=== PATIENT | female | born 1955 | race Caucasian/White ===

== ENCOUNTER 2017-04-26 09:01 | Day surgery (SDC) | payer MEDICARE ==
[~2017-04-26] VITALS: Ht 152.4 cm; Wt 54.2 kg
[2017-04-26] VITALS (8 sets, daily range): BP systolic 92–134; BP diastolic 60–93
[~2017-04-26 09:01] MED LIST: FERR324T4 PO; GABA300C PO; LACT10SO32 PO; LIDOcaine 1% 30ml vial IJ STA; OXYC15TA88 PO; RIFA200T2 PO
[2017-04-26] MEDS ORDERED: normal saline 1000ml 1,000 ML IV PRN (09:40)
[2017-04-26] MEDS ORDERED: albumin (human) 25% 100 ML IV solution IV PRN (09:40)
== END 2017-04-26 12:05 | disposition home or self-care (01) ==
LOC: SSTAY O 09:01
PROVIDERS: ATTEND Radiology Diagnostic Radiology
DX: R18.8 Other ascites (principal); G89.29 Other chronic pain; Z88.6 Allergy status to analgesic agent; Z88.8 Allergy status to other drugs, medicaments and biological substances; Z98.890 Other specified postprocedural states; Z87.891 Personal history of nicotine dependence; Z79.899 Other long term (current) drug therapy; D64.89 Other specified anemias; E78.4 Other hyperlipidemia; G47.30 Sleep apnea, unspecified
CPT/HCPCS: 49083; J3490; J7030; P9047

== ENCOUNTER 2017-05-23 16:28 | Inpatient (IN) | payer MEDICARE, OTHER ==
[~2017-05-23] VITALS: Ht 152.4 cm; Wt 51.4 kg
[~2017-05-23 16:28] MED LIST changes: -GABA300C PO; +GABA300S PO; -LACT10SO32 PO; +LACT10SO6 PO; -LIDOcaine 1% 30ml vial IJ STA; -RIFA200T2 PO; +RIFA550T PO
[2017-05-23] MEDS ORDERED: morphine 2 MG/ML inj. syringe IV ONE ×2 (16:40→18:25)
[2017-05-23] MEDS ORDERED: normal saline 1000ML IV soln IVB ONE (16:40)
[2017-05-23] MEDS ORDERED: ondansetron/PF 4mg/2ml inj IV ONE ×2 (16:40→17:50)
[2017-05-23] MEDS ORDERED: pantoprazole 40mg Tablet.DR PO ONE (16:40)
[2017-05-23 17:00] LABS: BASOPHILS % (AUTO) 0.3 % (0-1); EOSINOPHILS % (AUTO) 0.1 % (0-6); HEMOGLOBIN 7.1 g/dl (12.0-16.0); LYMPHOCYTES # (AUTO) 0.7 X10'3 (1.1-4.8); MEAN CORPUSCULAR HEMOGLOBIN 35.6 PG (27.0-31.0); MEAN CORPUSCULAR HGB CONC 35.2 % (33.0-36.5); MEAN CORPUSCULAR VOLUME 101.1 FL (78-98); MEAN PLATELET VOLUME 8.1 FL (7.4-10.4); MONOCYTES # (AUTO) 0.9 X10'3 (0-0.9); MONOCYTES % (AUTO) 10.6 % (2-12); NEUTROPHILS # (AUTO) 6.7 X10'3 (1.8-7.7); PLATELET COUNT 65 X10'3 (140-440); RED BLOOD COUNT 1.98 X10'6 (4.20-5.60); RED CELL DISTRIBUTION WIDTH 16.8 % (11.5-14.5); WHITE BLOOD COUNT 8.3 X10'3 (4.5-11.0)
[2017-05-23 17:10] LABS: INR 1.8 INR; PARTIAL THROMBOPLASTIN TIME 29 SECONDS (22-32); PROTHROMBIN TIME 17.9 SECONDS (9.0-12.0)
[2017-05-23 17:21] LABS: ALANINE AMINOTRANSFERASE 28 U/L (12-78); ALBUMIN 2.3 G/DL (3.4-5.0); ALBUMIN/GLOBULIN RATIO 0.6 (1.1-1.5); ALKALINE PHOSPHATASE 73 IU/L (46-116); ANION GAP 10 (8-16); ASPARTATE AMINO TRANSFERASE 100 U/L (10-37); BILIRUBIN,TOTAL 3.1 MG/DL (0.1-1.0); BLOOD UREA NITROGEN 112 MG/DL (7-18); BUN/CREATININE RATIO 38.6 (6.6-38.0); CALCIUM 7.7 MG/DL (8.5-10.1); CHLORIDE 90 MMOL/L (99-107); CREATINE KINASE 34 U/L (26-192); GLUCOSE 135 MG/DL (70-104); LIPASE 247 U/L (73-393); POTASSIUM 4.8 MMOL/L (3.5-5.1); SODIUM 128 MMOL/L (135-145); TOTAL PROTEIN 6.4 G/DL (6.4-8.2); eGFR 16 ML/MIN
[2017-05-23 18:08] LABS: CLARITY,URINE SLIGHTLY CLOUDY (Clear); COLOR,URINE AMBER (Yellow); GLUCOSE, URINE NEGATIVE (Neg); KETONES,URINE 15 mg/dl (Neg); LEUKOCYTE ESTERASE ,URINE NEGATIVE (Neg); OCCULT BLOOD,URINE NEGATIVE (Neg); PROTEIN,URINE NEGATIVE (Neg)
[2017-05-23 18:14] LABS: UA COLLECTION TYPE FOLEY CATH
[2017-05-23 18:16] LABS: NITRITES, URINE NEGATIVE (Neg)
[2017-05-23 18:17] LABS: BACTERIA,URINE NONE SEEN /HPF (Neg); RBC,URINE 0-2 /HPF (0-2); SQUAMOUS EPITHELIAL CELL,UR FEW /LPF (FEW); WBC,URINE 0-4 /HPF (0-4)
[2017-05-23 18:18] LABS: AMORPHOUS URATES 1+; MUCUS STRANDS MODERATE /LPF (Neg); TRANSITIONAL EPI CELLS,URINE MODERATE /HPF
[2017-05-23 18:19] LABS: HYALINE CASTS 0-3 /LPF (NEGATIVE)
[2017-05-23] MEDS ORDERED: FURO40TA4 PO (19:54)
[2017-05-23] MEDS ORDERED: LOVA20TA2 PO (19:54)
[2017-05-23] MEDS ORDERED: POTA20TA19 PO (19:54)
[2017-05-23] MEDS ORDERED: FOLI0.4T2 PO (19:54)
[2017-05-23] MEDS ORDERED: GABA600T2 PO (19:54)
[2017-05-23] MEDS: morphine 2 MG/ML inj. syringe IV PRN (21:53)
[2017-05-23] MEDS ORDERED: HYDROmorphone 1 mg/ml syringe IV PRN (22:15)
[2017-05-23] MEDS ORDERED: acetaminophen 325mg tablet PO PRN (22:15)
[2017-05-23] MEDS ORDERED: mag hydrox/Alum hydrox/simeth 30ml oral suspension PO PRN (22:15)
[2017-05-23] MEDS ORDERED: magnesium hydroxide 30ml (MOM) UD suspension PO PRN (22:15)
[2017-05-23] MEDS: ondansetron/PF 4mg/2ml inj IV PRN (22:42)
[2017-05-23 23:05] VITALS: BP 87/55
[2017-05-23] MEDS: normal saline 1000ml 1,000 ML IV SCH (23:33)
[2017-05-24] VITALS (18 sets, daily range): BP systolic 78–106; BP diastolic 48–62
[2017-05-24] MEDS: morphine 2 MG/ML inj. syringe IV PRN ×2 (00:33→04:12)
[2017-05-24] MEDS: ondansetron/PF 4mg/2ml inj IV PRN (05:47)
[2017-05-24] MEDS ORDERED: pneumococcal 23-VAL P-sac vacc 25 mcg/0.5ml vial IMVAC ONE ×2 (06:10→10:00)
[2017-05-24 07:00] LABS: BASOPHILS % (AUTO) 0.4 % (0-1); EOSINOPHILS % (AUTO) 0.3 % (0-6); LYMPHOCYTES # (AUTO) 1.2 X10'3 (1.1-4.8); LYMPHOCYTES % (AUTO) 13.5 % (21-51); MEAN CORPUSCULAR HEMOGLOBIN 36.7 PG (27.0-31.0); MEAN CORPUSCULAR HGB CONC 35.9 % (33.0-36.5); MEAN CORPUSCULAR VOLUME 102.1 FL (78-98); MEAN PLATELET VOLUME 9.3 FL (7.4-10.4); MONOCYTES # (AUTO) 0.8 X10'3 (0-0.9); MONOCYTES % (AUTO) 8.7 % (2-12); NEUTROPHILS % (AUTO) 77.1 % (42-75); PLATELET COUNT 57 X10'3 (140-440); RED CELL DISTRIBUTION WIDTH 17.3 % (11.5-14.5); WHITE BLOOD COUNT 9.1 X10'3 (4.5-11.0)
[2017-05-24 07:20] LABS: HEMATOCRIT 15.3 % (35.0-45.0); HEMOGLOBIN 5.5 g/dl (12.0-16.0)
[2017-05-24 07:31] LABS: ALANINE AMINOTRANSFERASE 24 U/L (12-78); ALBUMIN/GLOBULIN RATIO 0.5 (1.1-1.5); ALKALINE PHOSPHATASE 61 IU/L (46-116); ANION GAP 10 (8-16); ASPARTATE AMINO TRANSFERASE 94 U/L (10-37); BILIRUBIN,TOTAL 2.9 MG/DL (0.1-1.0); BLOOD UREA NITROGEN 130 MG/DL (7-18); BUN/CREATININE RATIO 40.5 (6.6-38.0); CALCIUM 7.3 MG/DL (8.5-10.1); CHLORIDE 93 MMOL/L (99-107); CREATININE 3.21 MG/DL (0.40-0.90); GLUCOSE 126 MG/DL (70-104); POTASSIUM 5.6 MMOL/L (3.5-5.1); SODIUM 127 MMOL/L (135-145); TOTAL CARBON DIOXIDE 24.5 MMOL/L (24-32); TOTAL PROTEIN 5.7 G/DL (6.4-8.2); eGFR 15 ML/MIN
[2017-05-24] MEDS: ferrous sulfate 325mg tablet PO SCH (07:45)
[2017-05-24] MEDS: folic acid 1mg tablet PO SCH (07:45)
[2017-05-24] MEDS: oxyCODONE IR 5mg (immed. release) tablet PO PRN (07:52)
[2017-05-24] MEDS ORDERED: folic acid 0.4mg tablet PO SCH (08:00)
[2017-05-24] MEDS ORDERED: lactulose 20gm/30ml cup PO SCH (08:00)
[2017-05-24 09:59] LABS: ANISOCYTOSIS 1+; PLATELET ESTIMATE DECREASED; SMUDGE CELLS 1+; TOTAL CELLS COUNTED 100
[2017-05-24] MEDS ORDERED: FLU VACC QS2017-18 36MOS UP/PF 60 MCG/0.5 ML SYRINGE IMVAC ONE (10:00)
[2017-05-24 14:32] LABS: OCCULT BLOOD STOOL POSITIVE (Neg)
[2017-05-24] MEDS: normal saline 1000ml 1,000 ML IV SCH (14:57)
[2017-05-24] MEDS ORDERED: LIDOcaine Viscous 15ml cup ONE (15:27)
[2017-05-24] MEDS ORDERED: midazolam 2 mg/2 ml injection ONE (15:27)
[2017-05-24] MEDS ORDERED: fentaNYL/PF 50MCG/1 ML 2ML syringe ONE (15:27)
[2017-05-24] MEDS ORDERED: normal saline 1000ml 1,000 ML IV SCH (15:43)
[2017-05-24] MEDS ORDERED: MIDAZolam 5mg/5ml vial IV PRN (15:45)
[2017-05-24] MEDS ORDERED: fentaNYL/PF 50MCG/1 ML 2ML syringe IV PRN (15:45)
[2017-05-24] MEDS ORDERED: LIDOcaine Viscous 15ml cup PO ONE (15:45)
[2017-05-24] MEDS ORDERED: simethicone 40mg/0.6ml oral drops 30ml MC ONE (15:45)
[2017-05-24] MEDS ORDERED: epiNEPHrine 0.1mg/ml 10ml syringe ONE (15:50)
[2017-05-24] MEDS ORDERED: pantoprazole 40MG/NS 100ML BAG 100 ML IV SCH (17:00)
[2017-05-24] MEDS: pantoprazole 40MG/NS 100ML BAG 100 ML IV SCH ×2 (17:30→21:13)
[2017-05-24 20:33] LABS: BASOPHILS % (AUTO) 0.3 % (0-1); EOSINOPHILS % (AUTO) 0.4 % (0-6); HEMATOCRIT 22.7 % (35.0-45.0); HEMOGLOBIN 8.1 g/dl (12.0-16.0); LYMPHOCYTES # (AUTO) 0.9 X10'3 (1.1-4.8); LYMPHOCYTES % (AUTO) 9.1 % (21-51); MEAN CORPUSCULAR HEMOGLOBIN 33.6 PG (27.0-31.0); MEAN CORPUSCULAR HGB CONC 35.7 % (33.0-36.5); MEAN CORPUSCULAR VOLUME 94.1 FL (78-98); MEAN PLATELET VOLUME 9.4 FL (7.4-10.4); MONOCYTES # (AUTO) 0.9 X10'3 (0-0.9); MONOCYTES % (AUTO) 9.5 % (2-12); NEUTROPHILS # (AUTO) 7.6 X10'3 (1.8-7.7); NEUTROPHILS % (AUTO) 80.7 % (42-75); RED BLOOD COUNT 2.41 X10'6 (4.20-5.60); RED CELL DISTRIBUTION WIDTH 17.6 % (11.5-14.5); WHITE BLOOD COUNT 9.5 X10'3 (4.5-11.0)
[2017-05-24 20:52] LABS: PLATELET COUNT 46 X10'3 (140-440)
[2017-05-24] MEDS ORDERED: albumin (Human) 5% 250 ML IV solution IV STA (22:32)
[2017-05-25] VITALS (12 sets, daily range): BP systolic 74–103; BP diastolic 38–63
[2017-05-25] MEDS: pantoprazole 40MG/NS 100ML BAG 100 ML IV SCH ×3 (01:46→13:57)
[2017-05-25 06:27] LABS: BASOPHILS % (AUTO) 0.2 % (0-1); EOSINOPHILS # (AUTO) 0.2 X10'3 (0-0.9); EOSINOPHILS % (AUTO) 1.7 % (0-6); LYMPHOCYTES # (AUTO) 1.5 X10'3 (1.1-4.8); LYMPHOCYTES % (AUTO) 15.5 % (21-51); MEAN CORPUSCULAR HEMOGLOBIN 33.7 PG (27.0-31.0); MEAN CORPUSCULAR HGB CONC 34.9 % (33.0-36.5); MEAN CORPUSCULAR VOLUME 96.7 FL (78-98); MEAN PLATELET VOLUME 9.6 FL (7.4-10.4); MONOCYTES # (AUTO) 0.7 X10'3 (0-0.9); NEUTROPHILS # (AUTO) 7.1 X10'3 (1.8-7.7); NEUTROPHILS % (AUTO) 75.6 % (42-75); RED BLOOD COUNT 2.07 X10'6 (4.20-5.60); RED CELL DISTRIBUTION WIDTH 17.9 % (11.5-14.5); WHITE BLOOD COUNT 9.4 X10'3 (4.5-11.0)
[2017-05-25 06:44] LABS: PLATELET COUNT 49 X10'3 (140-440)
[2017-05-25 06:50] LABS: ALANINE AMINOTRANSFERASE 26 U/L (12-78); ALBUMIN 2.6 G/DL (3.4-5.0); ALKALINE PHOSPHATASE 55 IU/L (46-116); ANION GAP 14 (8-16); ASPARTATE AMINO TRANSFERASE 79 U/L (10-37); BILIRUBIN,TOTAL 8.2 MG/DL (0.1-1.0); BLOOD UREA NITROGEN 148 MG/DL (7-18); BUN/CREATININE RATIO 45.5 (6.6-38.0); CALCIUM 6.8 MG/DL (8.5-10.1); CHLORIDE 96 MMOL/L (99-107); CREATININE 3.25 MG/DL (0.40-0.90); GLUCOSE 94 MG/DL (70-104); POTASSIUM 5.3 MMOL/L (3.5-5.1); SODIUM 131 MMOL/L (135-145); TOTAL CARBON DIOXIDE 21.3 MMOL/L (24-32); eGFR 14 ML/MIN
[2017-05-25 06:51] LABS: ALBUMIN/GLOBULIN RATIO 0.9 (1.1-1.5); TOTAL PROTEIN 5.6 G/DL (6.4-8.2)
[2017-05-25] MEDS: folic acid 1mg tablet PO SCH (08:12)
[2017-05-25] MEDS: ferrous sulfate 325mg tablet PO SCH (08:12)
[2017-05-25] MEDS: midodrine tablet 2.5 MG TABLET PO SCH ×2 (12:51→14:00)
[2017-05-25] MEDS ORDERED: albumin (Human) 5% 250 ML IV solution IV STA (13:29)
[2017-05-25] MEDS ORDERED: albumin (Human) 5% 250 ML IV solution IV SCH (20:00)
[2017-05-26] MEDS: morphine 2 MG/ML inj. syringe IV PRN ×2 (02:23→10:23)
[2017-05-26] MEDS ORDERED: HYDROmorphone inj. 0.5 MG/0.5 ML DISP.SYRIN IV PRN (08:19)
[2017-05-26] MEDS ORDERED: LORazepam 2 mg/ml vial IV PRN (08:50)
[2017-05-26] MEDS ORDERED: morphine 10mg/ml inj. IV PRN (08:50)
[2017-05-26 10:00] VITALS: BP 96/55
[2017-05-26] MEDS: docusate sod 100mg capsule PO SCH (20:00)
[2017-05-26 22:00] VITALS: BP 98/66
[2017-05-27] MEDS: docusate sod 100mg capsule PO SCH ×2 (08:00→20:00)
[2017-05-27] MEDS: morphine 2 MG/ML inj. syringe IV PRN ×4 (08:10→19:51)
[2017-05-27 10:00] VITALS: BP 89/45
[2017-05-27] MEDS: ondansetron/PF 4mg/2ml inj IV PRN (11:50)
[2017-05-27] MEDS: morphine 10mg/0.5ml (conc. morphine) oral syringe PO PRN ×2 (13:00→17:44)
[2017-05-27 22:00] VITALS: BP 87/54
[2017-05-28] MEDS: morphine 10mg/0.5ml (conc. morphine) oral syringe PO PRN ×4 (01:25→13:43)
[2017-05-28] MEDS: docusate sod 100mg capsule PO SCH ×2 (07:29→07:35)
[2017-05-28 10:00] VITALS: BP 93/68
[2017-05-28] MEDS: oxyCODONE IR 5mg (immed. release) tablet PO PRN (11:48)
[2017-05-28] MEDS ORDERED: HYDROmorphone/NS 1 mg/ml CADD 50 ML IV SCH (15:20)
[2017-05-28] MEDS: normal saline 1000ml 1,000 ML IV SCH (16:06)
[2017-05-28] MEDS: HYDROmorphone/NS 1 mg/ml CADD 50 ML IV SCH ×4 (16:25→23:00)
[2017-05-28] MEDS: ondansetron/PF 4mg/2ml inj IV PRN (19:49)
[2017-05-28 22:00] VITALS: BP 87/49
[2017-05-29] MEDS: HYDROmorphone/NS 1 mg/ml CADD 50 ML IV SCH ×12 (01:00→23:00)
[2017-05-29] MEDS: docusate sod 100mg capsule PO SCH ×2 (08:00→20:00)
[2017-05-29 10:00] VITALS: BP 114/71
[2017-05-29 22:00] VITALS: BP 91/65
[2017-05-30] MEDS: HYDROmorphone/NS 1 mg/ml CADD 50 ML IV SCH ×11 (01:00→23:00)
[2017-05-30] MEDS: docusate sod 100mg capsule PO SCH ×2 (08:00→20:00)
[2017-05-30] MEDS: normal saline 1000ml 1,000 ML IV SCH (19:22)
[2017-05-30 22:30] VITALS: BP 104/65
[2017-05-31] MEDS ORDERED: CADD PCA waste documentation MC SCH
[2017-05-31] MEDS: HYDROmorphone/NS 1 mg/ml CADD 50 ML IV SCH ×7 (01:00→13:00)
[2017-05-31] MEDS: docusate sod 100mg capsule PO SCH (08:00)
[2017-05-31 10:00] VITALS: BP 104/72
[2017-05-31] MEDS ORDERED: LORazepam 1 MG tablet PO ONE (10:20)
== END 2017-05-31 14:40 | DRG 377 ==
LOC: ER 16:28 → ED HOLD 22:11 → ORTHO 4S 22:57
PROVIDERS: ADMIT Internal Medicine; ATTEND Internal Medicine
PROC: 0W3P8ZZ Control Bleeding in Gastrointestinal Tract, Via Natural or Artificial Opening Endoscopic (ICD-10-PCS; principal; 2017-05-24)
PROC: 3E0G8GC Introduction of Other Therapeutic Substance into Upper GI, Via Natural or Artificial Opening Endoscopic (ICD-10-PCS; 2017-05-24)
PROC: 30233N1 Transfusion of Nonautologous Red Blood Cells into Peripheral Vein, Percutaneous Approach (ICD-10-PCS; 2017-05-24)
DX: K25.0 Acute gastric ulcer with hemorrhage (principal); K76.7 Hepatorenal syndrome; S72.115A Nondisplaced fracture of greater trochanter of left femur, initial encounter for closed fracture; D69.6 Thrombocytopenia, unspecified; K76.6 Portal hypertension; I95.9 Hypotension, unspecified; D62 Acute posthemorrhagic anemia; N18.9 Chronic kidney disease, unspecified; K29.71 Gastritis, unspecified, with bleeding; K44.9 Diaphragmatic hernia without obstruction or gangrene; K70.40 Alcoholic hepatic failure without coma; W18.39XA Other fall on same level, initial encounter; K70.31 Alcoholic cirrhosis of liver with ascites; G89.29 Other chronic pain; M54.9 Dorsalgia, unspecified; R79.89 Other specified abnormal findings of blood chemistry; Z51.5 Encounter for palliative care; Z66 Do not resuscitate; Z28.21 Immunization not carried out because of patient refusal; Z88.8 Allergy status to other drugs, medicaments and biological substances; Z79.899 Other long term (current) drug therapy; Y93.G3 Activity, cooking and baking; Y99.8 Other external cause status; Y92.098 Other place in other non-institutional residence as the place of occurrence of the external cause
CPT/HCPCS: 36415; 71045; 73502; 73700; 80053; 81001; 82140; 82272; 82550; 83690; 83874; 85025; 85610; 85730; 86885; 86900; 86901; 86920; 87070; 93005; 96361; 96374; 96375; 96376; 99285; A4315; A4620; A6213; A6255; C9113; G0500; J0171; J1170; J2250; J2270; J2405; J3010; J7030; P9016; P9045

== ENCOUNTER 2017-06-09 08:17 | Day surgery (SDC) | payer MEDICARE ==
[2017-06-09] VITALS (10 sets, daily range): BP systolic 89–149; BP diastolic 48–73
[~2017-06-09] VITALS: Ht 152.4 cm; Wt 47.6 kg
[~2017-06-09 08:17] MED LIST changes: +FOLI0.4T2 PO; -GABA300S PO; +GABA600T2 PO; -OXYC15TA88 PO; +POTA20TA19 PO; -RIFA550T PO
[2017-06-09] MEDS ORDERED: normal saline 1000ml 1,000 ML IV PRN (08:45)
[2017-06-09] MEDS ORDERED: [UNRECOGNIZED DRUG - CODE] IV (08:57)
[2017-06-09] MEDS: albumin (human) 25% 100 ML IV solution IV PRN ×2 (11:06→11:45)
== END 2017-06-09 13:10 | disposition home or self-care (01) ==
LOC: SSTAY O 08:17
PROVIDERS: ATTEND Radiology Diagnostic Radiology
DX: K70.31 Alcoholic cirrhosis of liver with ascites (principal); N18.9 Chronic kidney disease, unspecified; G89.29 Other chronic pain; Z98.890 Other specified postprocedural states; E78.4 Other hyperlipidemia; Z87.891 Personal history of nicotine dependence; G47.30 Sleep apnea, unspecified; Z79.899 Other long term (current) drug therapy; Z88.8 Allergy status to other drugs, medicaments and biological substances; Z88.6 Allergy status to analgesic agent
CPT/HCPCS: 49083; A6257; J7030; P9047

== ENCOUNTER 2017-06-28 07:13 | Day surgery (SDC) | payer MEDICARE ==
[2017-06-28] VITALS (8 sets, daily range): BP systolic 100–117; BP diastolic 56–67
[~2017-06-28] VITALS: Ht 152.4 cm; Wt 47.6 kg
[~2017-06-28 07:13] MED LIST changes: -LACT10SO6 PO; +[UNRECOGNIZED DRUG - CODE] IV
[2017-06-28] MEDS ORDERED: albumin (human) 25% 100 ML IV solution IV PRN (07:45)
[2017-06-28] MEDS ORDERED: normal saline 1000ml 1,000 ML IV PRN (07:45)
[2017-06-28] MEDS ORDERED: OXYC15TA88 PO (07:52)
[2017-06-28] MEDS ORDERED: DOL10T PO (07:52)
[2017-06-28] MEDS ORDERED: LIDOcaine 1% 30ml preserv. free vial SQ ONE (08:30)
== END 2017-06-28 10:12 | disposition home or self-care (01) ==
LOC: SSTAY O 07:13
PROVIDERS: ATTEND Radiology Vascular & Interventional Radiology
DX: R18.8 Other ascites (principal); G89.29 Other chronic pain; E87.6 Hypokalemia; E78.5 Hyperlipidemia, unspecified; M19.90 Unspecified osteoarthritis, unspecified site; M85.88 Other specified disorders of bone density and structure, other site; Z88.5 Allergy status to narcotic agent; Z88.6 Allergy status to analgesic agent; Z88.8 Allergy status to other drugs, medicaments and biological substances; Z79.891 Long term (current) use of opiate analgesic; Z98.890 Other specified postprocedural states; Z79.899 Other long term (current) drug therapy
CPT/HCPCS: 49083; A6257; J7030; P9047

== ENCOUNTER 2017-07-13 07:37 | Day surgery (SDC) | payer MEDICARE ==
[2017-07-13] VITALS (7 sets, daily range): BP systolic 91–110; BP diastolic 55–75
[~2017-07-13] VITALS: Ht 152.4 cm; Wt 47.0 kg
[~2017-07-13 07:37] MED LIST changes: +DOL10T PO; +OXYC15TA88 PO; -[UNRECOGNIZED DRUG - CODE] IV
[2017-07-13] MEDS ORDERED: normal saline 1000ml 1,000 ML IV PRN (08:05)
[2017-07-13] MEDS ORDERED: FURO-150 PO (08:06)
[2017-07-13] MEDS ORDERED: MULT1TAB74 PO (08:06)
[2017-07-13] MEDS ORDERED: albumin (human) 25% 100 ML IV solution IV PRN (08:10)
[2017-07-13] MEDS ORDERED: LIDOcaine 1% 30ml preserv. free vial SQ ONE (08:30)
== END 2017-07-13 10:00 ==
LOC: SSTAY O 07:37
PROVIDERS: ATTEND Radiology Diagnostic Radiology
DX: R18.8 Other ascites (principal); G89.29 Other chronic pain; I10 Essential (primary) hypertension; E78.5 Hyperlipidemia, unspecified; E87.6 Hypokalemia; Z88.6 Allergy status to analgesic agent; Z88.5 Allergy status to narcotic agent; Z98.890 Other specified postprocedural states; Z79.899 Other long term (current) drug therapy
CPT/HCPCS: 49083; A6257; A6449; J3490; J7030; P9047

== ENCOUNTER 2017-07-27 07:58 | Day surgery (SDC) | payer MEDICARE ==
[~2017-07-27 07:58] MED LIST changes: +FURO-150 PO; +MULT1TAB74 PO; -POTA20TA19 PO
[2017-07-27 08:15] VITALS: BP 128/77
[2017-07-27] MEDS ORDERED: LIDOcaine 1% 30ml preserv. free vial SQ STA (08:16)
[2017-07-27 08:44] VITALS: BP 111/79
[2017-07-27] MEDS ORDERED: SPIR25TA PO (08:49)
[2017-07-27] MEDS ORDERED: POTA10TA19 PO (08:49)
[2017-07-27] MEDS ORDERED: albumin (human) 25% 100 ML IV solution IV PRN (08:55)
[2017-07-27] MEDS ORDERED: normal saline 1000ml 1,000 ML IV PRN (08:55)
[2017-07-27 09:01] VITALS: BP 103/71
[2017-07-27 09:16] VITALS: BP 103/77
[2017-07-27 09:31] VITALS: BP 96/64
[2017-07-27 09:50] VITALS: BP 98/64
== END 2017-07-27 10:00 | disposition home or self-care (01) ==
LOC: SSTAY O 07:58
PROVIDERS: ATTEND Radiology Diagnostic Radiology
DX: R18.8 Other ascites (principal); E87.6 Hypokalemia; G89.29 Other chronic pain; I10 Essential (primary) hypertension; E78.5 Hyperlipidemia, unspecified; M85.88 Other specified disorders of bone density and structure, other site; Z98.890 Other specified postprocedural states; Z79.891 Long term (current) use of opiate analgesic; Z79.899 Other long term (current) drug therapy; Z88.5 Allergy status to narcotic agent; Z88.8 Allergy status to other drugs, medicaments and biological substances
CPT/HCPCS: 49083; A6257; J3490; J7030; P9047

== ENCOUNTER 2017-08-27 08:37 | Day surgery (SDC) | payer MEDICARE, MEDICAID ==
[~2017-08-27] VITALS: Ht 152.4 cm; Wt 54.3 kg
[2017-08-27] VITALS (11 sets, daily range): BP systolic 112–135; BP diastolic 69–97
[~2017-08-27 08:37] MED LIST changes: +LIDOcaine 1% (10mg/ml) 2ml vial SQ ONE; +LIDOcaine 1% (10mg/ml) 5ml syringe IJ ONE; +LIDOcaine 1% 30ml preserv. free vial SQ ONE; +LIDOcaine 1%/PF (10mg/ml) 5ml vial IJ ONE; -TETanus/Pertussis (Acell)/Diphther VAC/PF (Tdap-Adult) 0.5ml syringe IM ONE; -bacitracin 15gm ointment TP ONE
[2017-08-27] MEDS ORDERED: normal saline 1000ml 1,000 ML IV PRN (09:00)
[2017-08-27] MEDS ORDERED: oxyCODONE IR 5mg (immed. release) tablet PO ONE (09:20)
[2017-08-27] MEDS: albumin (human) 25% 100 ML IV solution IV PRN ×2 (10:01→10:36)
== END 2017-08-27 11:30 | disposition home or self-care (01) ==
LOC: SSTAY O 08:37
PROVIDERS: ATTEND Radiology Diagnostic Radiology
DX: R18.8 Other ascites (principal); E87.6 Hypokalemia; Z79.899 Other long term (current) drug therapy; Z88.8 Allergy status to other drugs, medicaments and biological substances; Z88.5 Allergy status to narcotic agent
CPT/HCPCS: 49083; A6257; J3490; J7030; P9047; J2001

== ENCOUNTER → 2017-08-27 | Emergency (ER) | payer MEDICARE, MEDICAID ==
[~2017-08-27] VITALS: Ht 152.4 cm; Wt 52.0 kg
[~2017-08-27] MED LIST changes: +POTA10TA19 PO; +SPIR25TA PO; +TETanus/Pertussis (Acell)/Diphther VAC/PF (Tdap-Adult) 0.5ml syringe IM ONE; +bacitracin 15gm ointment TP ONE
[2017-08-27 11:50] VITALS: BP 127/88
== END | disposition home or self-care (01) ==
LOC: ER 11:22
DX: S40.022A Contusion of left upper arm, initial encounter (principal); N18.9 Chronic kidney disease, unspecified; G89.29 Other chronic pain; Z56.0 Unemployment, unspecified; Z79.899 Other long term (current) drug therapy; W01.0XXA Fall on same level from slipping, tripping and stumbling without subsequent striking against object, initial encounter; Y93.89 Activity, other specified; Y92.89 Other specified places as the place of occurrence of the external cause; Y99.8 Other external cause status
CPT/HCPCS: 90471; 90715; 99284; A6222; A6223; A6446; A6449

== ENCOUNTER 2017-09-03 08:05 | Day surgery (SDC) | payer OTHER, MEDICAID ==
[2017-09-03] VITALS (10 sets, daily range): BP systolic 105–125; BP diastolic 64–79
[~2017-09-03] VITALS: Ht 152.4 cm; Wt 48.0 kg
[~2017-09-03 08:05] MED LIST changes: -LIDOcaine 1% (10mg/ml) 2ml vial SQ ONE; -LIDOcaine 1% (10mg/ml) 5ml syringe IJ ONE; -LIDOcaine 1% 30ml preserv. free vial SQ ONE; -LIDOcaine 1%/PF (10mg/ml) 5ml vial IJ ONE; +LIDOcaine 1%/PF (10mg/ml) 5ml vial SQ ONE
[2017-09-03] MEDS ORDERED: albumin (human) 25% 100 ML IV solution IV PRN (08:35)
[2017-09-03] MEDS ORDERED: normal saline 1000ml 1,000 ML IV PRN (08:35)
== END 2017-09-03 11:10 | disposition home or self-care (01) ==
LOC: SSTAY O 08:05
PROVIDERS: ATTEND Radiology Diagnostic Radiology
DX: R18.8 Other ascites (principal); E87.6 Hypokalemia; Z98.890 Other specified postprocedural states; Z88.8 Allergy status to other drugs, medicaments and biological substances; Z88.6 Allergy status to analgesic agent; Z88.5 Allergy status to narcotic agent; Z79.899 Other long term (current) drug therapy
CPT/HCPCS: 49083; A6257; J2001; J7030; P9047

== ENCOUNTER 2017-09-10 08:30 | Day surgery (SDC) | payer MEDICARE, MEDICAID ==
[2017-09-10] VITALS (12 sets, daily range): BP systolic 84–143; BP diastolic 55–74
[~2017-09-10] VITALS: Ht 152.4 cm; Wt 49.9 kg
[~2017-09-10 08:30] MED LIST changes: +LIDOcaine 1% 30ml preserv. free vial SQ STA; -LIDOcaine 1%/PF (10mg/ml) 5ml vial SQ ONE
== END 2017-09-10 10:50 | disposition home or self-care (01) ==
LOC: SSTAY O 08:30
PROVIDERS: ATTEND Radiology Diagnostic Radiology
DX: R18.8 Other ascites (principal); G89.29 Other chronic pain; E87.6 Hypokalemia; E78.5 Hyperlipidemia, unspecified; M85.88 Other specified disorders of bone density and structure, other site; I12.9 Hypertensive chronic kidney disease with stage 1 through stage 4 chronic kidney disease, or unspecified chronic kidney disease; N18.9 Chronic kidney disease, unspecified; Z79.891 Long term (current) use of opiate analgesic; Z88.5 Allergy status to narcotic agent; Z88.6 Allergy status to analgesic agent; Z88.8 Allergy status to other drugs, medicaments and biological substances; Z98.890 Other specified postprocedural states; Z79.899 Other long term (current) drug therapy
CPT/HCPCS: 49083; A6257; J3490

== ENCOUNTER 2017-09-17 07:48 | Day surgery (SDC) | payer MEDICARE, MEDICAID ==
[~2017-09-17] VITALS: Ht 152.4 cm; Wt 51.9 kg
[2017-09-17] VITALS (8 sets, daily range): BP systolic 93–145; BP diastolic 47–74
[2017-09-17] MEDS ORDERED: albumin (human) 25% 100 ML IV solution IV PRN (08:10)
[2017-09-17] MEDS ORDERED: normal saline 1000ml 1,000 ML IV PRN (08:10)
== END 2017-09-17 09:50 | disposition home or self-care (01) ==
LOC: SSTAY O 07:48
PROVIDERS: ATTEND Radiology Diagnostic Radiology
DX: R18.8 Other ascites (principal); G89.29 Other chronic pain; E87.6 Hypokalemia; E78.5 Hyperlipidemia, unspecified; M19.90 Unspecified osteoarthritis, unspecified site; I12.9 Hypertensive chronic kidney disease with stage 1 through stage 4 chronic kidney disease, or unspecified chronic kidney disease; N18.9 Chronic kidney disease, unspecified; M85.88 Other specified disorders of bone density and structure, other site; Z79.891 Long term (current) use of opiate analgesic; Z88.5 Allergy status to narcotic agent; Z88.6 Allergy status to analgesic agent; Z88.8 Allergy status to other drugs, medicaments and biological substances; Z79.899 Other long term (current) drug therapy; Z98.890 Other specified postprocedural states
CPT/HCPCS: 49083; A6257; J3490; J7030

== ENCOUNTER 2017-09-17 09:45 | Emergency (ER) | payer MEDICARE, MEDICAID ==
[~2017-09-17] VITALS: Ht 152.4 cm; Wt 51.8 kg
[~2017-09-17 09:45] MED LIST changes: -LIDOcaine 1% 30ml preserv. free vial SQ STA
[2017-09-17 09:50] VITALS: BP 106/67
== END 2017-09-17 10:43 | disposition home or self-care (01) ==
LOC: ER 09:45
DX: S51.812A Laceration without foreign body of left forearm, initial encounter (principal); G89.29 Other chronic pain; Z98.890 Other specified postprocedural states; Z87.442 Personal history of urinary calculi; Z56.0 Unemployment, unspecified; Z88.8 Allergy status to other drugs, medicaments and biological substances; Z79.899 Other long term (current) drug therapy; W18.39XA Other fall on same level, initial encounter; Y93.89 Activity, other specified; Y92.89 Other specified places as the place of occurrence of the external cause; Y99.8 Other external cause status
CPT/HCPCS: 99283; A6222; 99282

== ENCOUNTER 2017-09-27 07:32 | Day surgery (SDC) | payer MEDICARE, MEDICAID ==
[2017-09-27] VITALS (7 sets, daily range): BP systolic 102–136; BP diastolic 68–81
[~2017-09-27] VITALS: Ht 152.4 cm; Wt 48.9 kg
[2017-09-27] MEDS ORDERED: normal saline 1000ml 1,000 ML IV PRN (08:25)
[2017-09-27] MEDS ORDERED: LIDOcaine 1%/PF 5ML 10 MG/ML VIAL SQ STA ×2 (08:25→08:41)
[2017-09-27] MEDS ORDERED: oxyCODONE/APAP 5-325mg tablet PO ONE (08:25)
[2017-09-27] MEDS ORDERED: albumin (human) 25% 100 ML IV solution IV PRN (08:25)
== END 2017-09-27 09:30 | disposition home or self-care (01) ==
LOC: SSTAY O 07:32
PROVIDERS: ATTEND Radiology Diagnostic Radiology
DX: R18.8 Other ascites (principal); G89.29 Other chronic pain; E87.6 Hypokalemia; E78.5 Hyperlipidemia, unspecified; M19.90 Unspecified osteoarthritis, unspecified site; I12.9 Hypertensive chronic kidney disease with stage 1 through stage 4 chronic kidney disease, or unspecified chronic kidney disease; N18.9 Chronic kidney disease, unspecified; M85.88 Other specified disorders of bone density and structure, other site; Z87.891 Personal history of nicotine dependence; Z88.5 Allergy status to narcotic agent; Z79.891 Long term (current) use of opiate analgesic; Z88.8 Allergy status to other drugs, medicaments and biological substances; Z79.899 Other long term (current) drug therapy; Z98.890 Other specified postprocedural states
CPT/HCPCS: 49083; A6257; J2001; J7030

== ENCOUNTER 2017-10-05 08:00 | Outpatient (CLI) | payer MEDICARE, MEDICAID ==
[~2017-10-05 08:00] MED LIST changes: +LIDOcaine 1%/PF 5ML 10 MG/ML VIAL SQ STA
== END 2017-10-05 08:01 | disposition home or self-care (01) ==
LOC: SSTAY O 08:00 → EDSTATUS 09:30
PROVIDERS: ATTEND Radiology Diagnostic Radiology
DX: R18.8 Other ascites (principal); Z53.8 Procedure and treatment not carried out for other reasons; I12.9 Hypertensive chronic kidney disease with stage 1 through stage 4 chronic kidney disease, or unspecified chronic kidney disease; N18.9 Chronic kidney disease, unspecified; M85.88 Other specified disorders of bone density and structure, other site; G89.29 Other chronic pain; M19.90 Unspecified osteoarthritis, unspecified site; Z87.891 Personal history of nicotine dependence; Z88.6 Allergy status to analgesic agent; Z86.69 Personal history of other diseases of the nervous system and sense organs; Z88.5 Allergy status to narcotic agent; Z79.891 Long term (current) use of opiate analgesic; Z88.8 Allergy status to other drugs, medicaments and biological substances; Z98.890 Other specified postprocedural states; Z79.899 Other long term (current) drug therapy
CPT/HCPCS: A6257

== ENCOUNTER 2017-10-11 07:47 | Day surgery (SDC) | payer MEDICARE, MEDICAID ==
[~2017-10-11] VITALS: Ht 152.4 cm; Wt 49.4 kg
[~2017-10-11 07:47] MED LIST changes: -LIDOcaine 1%/PF 5ML 10 MG/ML VIAL SQ STA
[2017-10-11 08:32] VITALS: BP 127/75
[2017-10-11] MEDS ORDERED: LIDOcaine 1%/PF 5ML 10 MG/ML VIAL SQ STA (08:44)
[2017-10-11] MEDS ORDERED: CEPH-571 PO (08:44)
[2017-10-11 09:15] VITALS: BP 104/62
[2017-10-11 09:30] VITALS: BP 101/55
[2017-10-11 09:50] VITALS: BP 102/58
== END 2017-10-11 09:50 | disposition home or self-care (01) ==
LOC: SSTAY O 07:47
PROVIDERS: ATTEND Radiology Diagnostic Radiology
DX: R18.8 Other ascites (principal); G89.29 Other chronic pain; E78.5 Hyperlipidemia, unspecified; E87.6 Hypokalemia; M19.90 Unspecified osteoarthritis, unspecified site; M85.88 Other specified disorders of bone density and structure, other site; I12.9 Hypertensive chronic kidney disease with stage 1 through stage 4 chronic kidney disease, or unspecified chronic kidney disease; N18.9 Chronic kidney disease, unspecified; Z86.69 Personal history of other diseases of the nervous system and sense organs; Z87.891 Personal history of nicotine dependence; Z87.442 Personal history of urinary calculi; Z88.5 Allergy status to narcotic agent; Z88.6 Allergy status to analgesic agent; Z79.891 Long term (current) use of opiate analgesic; Z79.2 Long term (current) use of antibiotics; Z88.8 Allergy status to other drugs, medicaments and biological substances; Z79.899 Other long term (current) drug therapy; Z98.890 Other specified postprocedural states
CPT/HCPCS: 49083; A6258; J2001

== ENCOUNTER 2017-10-28 07:11 | Day surgery (SDC) | payer MEDICARE, MEDICAID ==
[~2017-10-28] VITALS: Ht 152.4 cm; Wt 49.2 kg
[~2017-10-28 07:11] MED LIST changes: +CEPH-571 PO; +LIDOcaine 1%/PF 5ML 10 MG/ML VIAL SQ ONE
[2017-10-28 07:29] VITALS: BP 129/78
[2017-10-28] MEDS ORDERED: albumin (human) 25% 100 ML IV solution IV PRN (07:40)
[2017-10-28] MEDS ORDERED: normal saline 1000ml 1,000 ML IV PRN (07:40)
[2017-10-28 09:05] VITALS: BP 141/82
[2017-10-28 09:15] VITALS: BP 121/64
[2017-10-28] MEDS ORDERED: oxyCODONE IR 5mg (immed. release) tablet PO ONE (09:15)
[2017-10-28 09:30] VITALS: BP 107/63
[2017-10-28 09:36] VITALS: BP_SYST 120; BP_SYST 127; BP_DIAS 63; BP_DIAS 81
== END 2017-10-28 09:46 | disposition home or self-care (01) ==
LOC: SSTAY O 07:11
PROVIDERS: ATTEND Radiology Diagnostic Radiology
DX: R18.8 Other ascites (principal); E78.5 Hyperlipidemia, unspecified; M19.90 Unspecified osteoarthritis, unspecified site; I12.9 Hypertensive chronic kidney disease with stage 1 through stage 4 chronic kidney disease, or unspecified chronic kidney disease; N18.9 Chronic kidney disease, unspecified; M85.88 Other specified disorders of bone density and structure, other site; Z88.5 Allergy status to narcotic agent; Z87.891 Personal history of nicotine dependence; Z88.6 Allergy status to analgesic agent; Z79.2 Long term (current) use of antibiotics; Z86.69 Personal history of other diseases of the nervous system and sense organs; Z88.8 Allergy status to other drugs, medicaments and biological substances; Z98.890 Other specified postprocedural states; Z79.899 Other long term (current) drug therapy
CPT/HCPCS: 49083; A6257; J2001; J7030

== ENCOUNTER 2017-11-29 09:34 | Day surgery (SDC) | payer MEDICARE, MEDICAID ==
[~2017-11-29] VITALS: Ht 152.4 cm; Wt 50.1 kg
[~2017-11-29 09:34] MED LIST changes: -CEPH-571 PO
[2017-11-29 09:52] VITALS: BP 134/70
[2017-11-29] MEDS ORDERED: albumin (human) 25% 100 ML IV solution IV PRN (10:00)
[2017-11-29] MEDS ORDERED: normal saline 1000ml 1,000 ML IV PRN (10:00)
[2017-11-29 10:29] VITALS: BP 120/79
[2017-11-29 10:45] VITALS: BP 122/83
[2017-11-29 11:00] VITALS: BP 104/70
[2017-11-29 11:15] VITALS: BP 116/66
[2017-11-29 11:27] VITALS: BP 114/76
== END 2017-11-29 09:45 | disposition home or self-care (01) ==
LOC: SSTAY O 09:34
PROVIDERS: ATTEND Radiology Vascular & Interventional Radiology
DX: K70.11 Alcoholic hepatitis with ascites (principal); G89.29 Other chronic pain; E87.6 Hypokalemia; E78.5 Hyperlipidemia, unspecified; M19.90 Unspecified osteoarthritis, unspecified site; M85.88 Other specified disorders of bone density and structure, other site; K21.9 Gastro-esophageal reflux disease without esophagitis; I12.9 Hypertensive chronic kidney disease with stage 1 through stage 4 chronic kidney disease, or unspecified chronic kidney disease; N18.9 Chronic kidney disease, unspecified; G47.33 Obstructive sleep apnea (adult) (pediatric); F41.8 Other specified anxiety disorders; Z86.69 Personal history of other diseases of the nervous system and sense organs; Z87.442 Personal history of urinary calculi; Z88.5 Allergy status to narcotic agent; Z79.891 Long term (current) use of opiate analgesic; Z88.6 Allergy status to analgesic agent; Z87.891 Personal history of nicotine dependence; Z98.890 Other specified postprocedural states; Z79.899 Other long term (current) drug therapy; Z88.8 Allergy status to other drugs, medicaments and biological substances; Z81.8 Family history of other mental and behavioral disorders
CPT/HCPCS: 49083; A6257; J2001; J7030

== ENCOUNTER 2017-12-16 07:27 | Day surgery (SDC) | payer MEDICARE ==
[2017-12-16] VITALS (10 sets, daily range): BP systolic 108–120; BP diastolic 59–78
[~2017-12-16] VITALS: Ht 152.4 cm; Wt 55.1 kg
[~2017-12-16 07:27] MED LIST changes: -DOL10T PO
[2017-12-16] MEDS ORDERED: normal saline 1000ml 1,000 ML IV PRN (07:55)
[2017-12-16] MEDS ORDERED: albumin (human) 25% 100 ML IV solution IV PRN (09:30)
== END 2017-12-16 10:50 | disposition home or self-care (01) ==
LOC: SSTAY O 07:27
PROVIDERS: ATTEND Radiology Diagnostic Radiology
DX: R18.8 Other ascites (principal); G89.29 Other chronic pain; E87.6 Hypokalemia; E78.5 Hyperlipidemia, unspecified; M19.90 Unspecified osteoarthritis, unspecified site; F19.21 Other psychoactive substance dependence, in remission; I12.9 Hypertensive chronic kidney disease with stage 1 through stage 4 chronic kidney disease, or unspecified chronic kidney disease; N18.9 Chronic kidney disease, unspecified; G47.33 Obstructive sleep apnea (adult) (pediatric); F41.8 Other specified anxiety disorders; Z86.69 Personal history of other diseases of the nervous system and sense organs; Z87.442 Personal history of urinary calculi; Z79.2 Long term (current) use of antibiotics; Z87.891 Personal history of nicotine dependence; Z88.5 Allergy status to narcotic agent; Z72.89 Other problems related to lifestyle; Z88.6 Allergy status to analgesic agent; Z81.8 Family history of other mental and behavioral disorders; Z79.891 Long term (current) use of opiate analgesic; Z98.890 Other specified postprocedural states; Z79.899 Other long term (current) drug therapy; Z88.8 Allergy status to other drugs, medicaments and biological substances
CPT/HCPCS: 49083; A6257; A6449; J2001; J7030; P9047

== ENCOUNTER 2017-12-30 16:04 | Inpatient (IN) | payer MEDICARE, OTHER ==
[~2017-12-30] VITALS: Ht 152.4 cm; Wt 49.4 kg
[2017-12-30] VITALS (7 sets, daily range): BP systolic 78–104; BP diastolic 43–58
[~2017-12-30 16:04] MED LIST changes: -LIDOcaine 1%/PF 5ML 10 MG/ML VIAL SQ ONE
[2017-12-30] MEDS ORDERED: normal saline 1000ML IV soln IV ONE (16:35)
[2017-12-30 17:03] LABS: BASOPHILS # (AUTO) 0.1 X10'3 (0-0.2); BASOPHILS % (AUTO) 0.7 % (0-1); EOSINOPHILS % (AUTO) 0 % (0-6); LYMPHOCYTES # (AUTO) 1.3 X10'3 (1.1-4.8); LYMPHOCYTES % (AUTO) 8.6 % (21-51); MEAN CORPUSCULAR HEMOGLOBIN 34.7 PG (27.0-31.0); MEAN CORPUSCULAR HGB CONC 34.1 % (33.0-36.5); MEAN CORPUSCULAR VOLUME 101.9 FL (78-98); MONOCYTES # (AUTO) 1.3 X10'3 (0-0.9); MONOCYTES % (AUTO) 8.5 % (2-12); NEUTROPHILS # (AUTO) 12.6 X10'3 (1.8-7.7); NEUTROPHILS % (AUTO) 82.2 % (42-75); PLATELET COUNT 132 X10'3 (140-440); RED BLOOD COUNT 1.59 X10'6 (4.20-5.60); RED CELL DISTRIBUTION WIDTH 17.4 % (11.5-14.5); WHITE BLOOD COUNT 15.3 X10'3 (4.5-11.0)
[2017-12-30 17:07] LABS: HEMATOCRIT 16.2 % (35.0-45.0); HEMOGLOBIN 5.5 g/dl (12.0-16.0)
[2017-12-30 17:11] LABS: INR 2.1 INR; PROTHROMBIN TIME 21.1 SECONDS (9.0-12.0)
[2017-12-30] MEDS ORDERED: pantoprazole IV 80 MG in normal saline 100ml IV soln 100 ML IV ONE (17:25)
[2017-12-30] MEDS ORDERED: piperacillin/tazo 3.375gm/50ml 50 ML IV ONE (17:35)
[2017-12-30 17:40] LABS: ALANINE AMINOTRANSFERASE 576 U/L (12-78); ALBUMIN 2.1 G/DL (3.4-5.0); ALBUMIN/GLOBULIN RATIO 0.6 (1.1-1.5); ALKALINE PHOSPHATASE 86 IU/L (46-116); ANION GAP 22 (8-16); BILIRUBIN,TOTAL 1.2 MG/DL (0.1-1.0); BLOOD UREA NITROGEN 107 MG/DL (7-18); BUN/CREATININE RATIO 42.5 (6.6-38.0); CALCIUM 7.5 MG/DL (8.5-10.1); CHLORIDE 92 MMOL/L (99-107); CREATININE 2.52 MG/DL (0.40-0.90); GLUCOSE 125 MG/DL (70-104); POTASSIUM 4.3 MMOL/L (3.5-5.1); SODIUM 128 MMOL/L (135-145); TOTAL PROTEIN 5.6 G/DL (6.4-8.2); eGFR 19 ML/MIN
[2017-12-30 17:48] LABS: TOTAL CARBON DIOXIDE 13.6 MMOL/L (24-32)
[2017-12-30 17:50] LABS: ANISOCYTOSIS 1+; PLATELET ESTIMATE DECREASED
[2017-12-30 17:52] LABS: BURR CELLS FEW; POLYCHROMASIA FEW; SCHISTOCYTES FEW
[2017-12-30 17:53] LABS: ASPARTATE AMINO TRANSFERASE 2162 U/L (10-37)
[2017-12-30] MEDS ORDERED: pantoprazole 40MG/NS 100ML BAG 100 ML IV SCH ×2 (18:35→21:00)
[2017-12-30] MEDS ORDERED: acetaminophen 325mg tablet PO PRN (18:40)
[2017-12-30] MEDS ORDERED: ondansetron/PF 4mg/2ml inj IV PRN (18:40)
[2017-12-30] MEDS ORDERED: mag hydrox/Alum hydrox/simeth 30ml oral suspension PO PRN (18:40)
[2017-12-30] MEDS ORDERED: magnesium hydroxide 30ml (MOM) UD suspension PO PRN (18:40)
[2017-12-30] MEDS ORDERED: oxyCODONE SR 10mg (sust. release) tab PO ONE (18:50)
[2017-12-30] MEDS ORDERED: furosemide 40mg/4ml inj IV ONE (19:10)
[2017-12-30] MEDS: pantoprazole 40 MG vial IV SCH ×2 (19:21→19:27)
[2017-12-30] MEDS: CefTRIAXone 2gm/D5W 50ml 50 ML IV SCH (20:11)
[2017-12-30] MEDS: pantoprazole 40mg Tablet.DR PO SCH (22:21)
[2017-12-31] VITALS (17 sets, daily range): BP systolic 75–122; BP diastolic 43–76
[2017-12-31] MEDS: midodrine tablet 2.5 MG TABLET PO SCH ×4 (00:19→23:29)
[2017-12-31] MEDS: gabapentin 400mg capsule PO SCH ×2 (00:19→07:13)
[2017-12-31 02:56] LABS: URINE HCG NEGATIVE (NEG)
[2017-12-31 02:59] LABS: CLARITY,URINE CLEAR (Clear); COLOR,URINE YELLOW (Yellow); GLUCOSE, URINE NEGATIVE (Neg); KETONES,URINE NEGATIVE (Neg); LEUKOCYTE ESTERASE ,URINE NEGATIVE (Neg); NITRITES, URINE NEGATIVE (Neg); OCCULT BLOOD,URINE TRACE-INTACT (Neg); PH,URINE 5.5 (4.8-8.0); PROTEIN,URINE NEGATIVE (Neg); UA COLLECTION TYPE CLN CATCH MIDSTREAM; UROBILINOGEN,URINE 0.2 E.U/dL (0.2-1.0)
[2017-12-31 03:07] LABS: BACTERIA,URINE FEW /HPF (Neg); MUCUS STRANDS NONE SEEN /LPF (Neg); RBC,URINE 0-2 /HPF (0-2); SQUAMOUS EPITHELIAL CELL,UR FEW /LPF (FEW); WBC,URINE 0-4 /HPF (0-4)
[2017-12-31 05:35] LABS: BASOPHILS % (AUTO) 0.2 % (0-1); EOSINOPHILS % (AUTO) 0.3 % (0-6); HEMATOCRIT 23.3 % (35.0-45.0); HEMOGLOBIN 8.1 g/dl (12.0-16.0); LYMPHOCYTES # (AUTO) 1.2 X10'3 (1.1-4.8); LYMPHOCYTES % (AUTO) 12.4 % (21-51); MEAN CORPUSCULAR HEMOGLOBIN 32.5 PG (27.0-31.0); MEAN CORPUSCULAR VOLUME 92.9 FL (78-98); MEAN PLATELET VOLUME 7.7 FL (7.4-10.4); MONOCYTES # (AUTO) 0.7 X10'3 (0-0.9); MONOCYTES % (AUTO) 7.2 % (2-12); NEUTROPHILS # (AUTO) 7.4 X10'3 (1.8-7.7); NEUTROPHILS % (AUTO) 79.9 % (42-75); PLATELET COUNT 70 X10'3 (140-440); RED CELL DISTRIBUTION WIDTH 20.1 % (11.5-14.5); WHITE BLOOD COUNT 9.3 X10'3 (4.5-11.0)
[2017-12-31 06:00] LABS: INR 1.9 INR; PROTHROMBIN TIME 19.5 SECONDS (9.0-12.0)
[2017-12-31] MEDS: pantoprazole 40mg Tablet.DR PO SCH ×2 (07:13→19:27)
[2017-12-31] MEDS: oxyCODONE IR 5mg (immed. release) tablet PO PRN ×3 (07:15→20:15)
[2017-12-31] MEDS: CefTRIAXone 2gm/D5W 50ml 50 ML IV SCH (07:18)
[2017-12-31] MEDS ORDERED: LIDOcaine Viscous 15ml cup ONE (09:45)
[2017-12-31] MEDS ORDERED: MIDAZolam 5mg/5ml vial ONE (09:45)
[2017-12-31] MEDS ORDERED: fentaNYL/PF 50MCG/1 ML 2ML syringe ONE (09:45)
[2017-12-31 12:58] LABS: BASOPHILS # (AUTO) 0.1 X10'3 (0-0.2); BASOPHILS % (AUTO) 1.4 % (0-1); EOSINOPHILS # (AUTO) 0.1 X10'3 (0-0.9); EOSINOPHILS % (AUTO) 1.6 % (0-6); HEMOGLOBIN 8.2 g/dl (12.0-16.0); LYMPHOCYTES % (AUTO) 11.8 % (21-51); MEAN CORPUSCULAR HEMOGLOBIN 32.1 PG (27.0-31.0); MEAN CORPUSCULAR HGB CONC 34.4 % (33.0-36.5); MEAN CORPUSCULAR VOLUME 93.4 FL (78-98); MEAN PLATELET VOLUME 8.3 FL (7.4-10.4); MONOCYTES # (AUTO) 0.3 X10'3 (0-0.9); MONOCYTES % (AUTO) 3.5 % (2-12); NEUTROPHILS % (AUTO) 81.7 % (42-75); PLATELET COUNT 76 X10'3 (140-440); RED BLOOD COUNT 2.57 X10'6 (4.20-5.60); RED CELL DISTRIBUTION WIDTH 20.9 % (11.5-14.5); WHITE BLOOD COUNT 8.6 X10'3 (4.5-11.0)
[2017-12-31] MEDS: albumin (human) 25% 100 ML IV solution IV SCH (13:05)
[2017-12-31] MEDS: methylPREDNISolone sod succ/PF 40mg inj. IV SCH (13:19)
[2017-12-31 13:26] LABS: AMYLASE 32 U/L (25-115); LACTATE DEHYDROGENASE 413 U/L (81-234); LIPASE 166 U/L (73-393)
[2017-12-31 13:49] LABS: H PYLORI ANTIBODY NEGATIVE (Neg)
[2017-12-31] MEDS: gabapentin 300mg capsule PO SCH ×2 (14:11→19:27)
[2017-12-31 14:18] LABS: GLUCOSE,BODY FLUID 136 MG/DL; LDH,BODY FLUID 60 U/L; TRIGLYCERIDES,BODY FLUID 30 MG/DL
[2017-12-31 14:47] LABS: BF RBC COUNT 875 /CU MM; BF WBC COUNT 5 /CU MM (0-1000); BFAPPEAR CLEAR; BFCOLOR YELLOW; BFVOLUME 10 ML; LYMPHOCYTES,BODY FLUID 71 %; MONOCYTES,BODY FLUID 21 %; NEUTROPHILS,BODY FLUID 8 %
[2017-12-31 14:48] LABS: BF MESOTHELIAL CELLS FEW
[2017-12-31 14:55] LABS: TOTAL PROTEIN,BODY FLUID < 2.0 G/DL
[2018-01-01 02:00] VITALS: BP 102/59
[2018-01-01] MEDS: gabapentin 300mg capsule PO SCH ×4 (02:16→19:28)
[2018-01-01] MEDS: oxyCODONE IR 5mg (immed. release) tablet PO PRN ×4 (02:16→22:47)
[2018-01-01 06:00] VITALS: BP 94/55
[2018-01-01 06:09] LABS: BASOPHILS % (AUTO) 0 % (0-1); EOSINOPHILS % (AUTO) 0.2 % (0-6); HEMATOCRIT 24.5 % (35.0-45.0); HEMOGLOBIN 8.5 g/dl (12.0-16.0); LYMPHOCYTES # (AUTO) 0.4 X10'3 (1.1-4.8); LYMPHOCYTES % (AUTO) 3.6 % (21-51); MEAN CORPUSCULAR HEMOGLOBIN 32.6 PG (27.0-31.0); MEAN CORPUSCULAR HGB CONC 34.8 % (33.0-36.5); MEAN CORPUSCULAR VOLUME 93.6 FL (78-98); MEAN PLATELET VOLUME 8.2 FL (7.4-10.4); MONOCYTES # (AUTO) 0.5 X10'3 (0-0.9); MONOCYTES % (AUTO) 4.6 % (2-12); NEUTROPHILS # (AUTO) 10.6 X10'3 (1.8-7.7); NEUTROPHILS % (AUTO) 91.6 % (42-75); PLATELET COUNT 86 X10'3 (140-440); RED BLOOD COUNT 2.62 X10'6 (4.20-5.60); RED CELL DISTRIBUTION WIDTH 20.7 % (11.5-14.5); WHITE BLOOD COUNT 11.5 X10'3 (4.5-11.0)
[2018-01-01 06:11] LABS: INR 1.9 INR; PROTHROMBIN TIME 18.9 SECONDS (9.0-12.0)
[2018-01-01 06:32] LABS: GLUCOSE 131 MG/DL (70-104); SODIUM 132 MMOL/L (135-145)
[2018-01-01 06:33] LABS: ALANINE AMINOTRANSFERASE 354 U/L (12-78); ALBUMIN/GLOBULIN RATIO 0.8 (1.1-1.5); ALKALINE PHOSPHATASE 87 IU/L (46-116); ANION GAP 16 (8-16); ASPARTATE AMINO TRANSFERASE 649 U/L (10-37); BILIRUBIN,TOTAL 2.1 MG/DL (0.1-1.0); BLOOD UREA NITROGEN 90 MG/DL (7-18); BUN/CREATININE RATIO 54.2 (6.6-38.0); CALCIUM 8.1 MG/DL (8.5-10.1); CHLORIDE 99 MMOL/L (99-107); CREATININE 1.66 MG/DL (0.40-0.90); POTASSIUM 3.8 MMOL/L (3.5-5.1); TOTAL CARBON DIOXIDE 17.1 MMOL/L (24-32); TOTAL PROTEIN 6.7 G/DL (6.4-8.2); eGFR 31 ML/MIN
[2018-01-01] MEDS: CefTRIAXone 2gm/D5W 50ml 50 ML IV SCH (07:56)
[2018-01-01] MEDS: methylPREDNISolone sod succ/PF 40mg inj. IV SCH (07:56)
[2018-01-01] MEDS: midodrine tablet 2.5 MG TABLET PO SCH ×2 (07:57→16:14)
[2018-01-01] MEDS: pantoprazole 40mg Tablet.DR PO SCH ×2 (07:57→19:28)
[2018-01-01] MEDS: albumin (human) 25% 100 ML IV solution IV SCH (08:53)
[2018-01-01 09:05] LABS: ANISOCYTOSIS 3+; PLATELET ESTIMATE DECREASED
[2018-01-01 09:06] LABS: BURR CELLS 1+; POLYCHROMASIA 2+
[2018-01-01 11:00] VITALS: BP 121/72
[2018-01-01 11:25] LABS: HBSAG SCREEN Negative (Negative); HEP A AB, IGM Negative (Negative); HEP B CORE AB, IGM Negative (Negative); HEPATITIS C ANTIBODY 0.1 s/co ratio (0.0-0.9)
[2018-01-01 12:45] LABS: BASOPHILS % (AUTO) 0.3 % (0-1); EOSINOPHILS % (AUTO) 0 % (0-6); HEMATOCRIT 22.3 % (35.0-45.0); HEMOGLOBIN 7.6 g/dl (12.0-16.0); LYMPHOCYTES # (AUTO) 0.3 X10'3 (1.1-4.8); LYMPHOCYTES % (AUTO) 2.5 % (21-51); MEAN CORPUSCULAR HEMOGLOBIN 32.4 PG (27.0-31.0); MEAN CORPUSCULAR HGB CONC 34.2 % (33.0-36.5); MEAN CORPUSCULAR VOLUME 94.8 FL (78-98); MEAN PLATELET VOLUME 8.2 FL (7.4-10.4); MONOCYTES # (AUTO) 0.3 X10'3 (0-0.9); MONOCYTES % (AUTO) 2.4 % (2-12); NEUTROPHILS # (AUTO) 11.3 X10'3 (1.8-7.7); NEUTROPHILS % (AUTO) 94.8 % (42-75); PLATELET COUNT 81 X10'3 (140-440); RED BLOOD COUNT 2.36 X10'6 (4.20-5.60); RED CELL DISTRIBUTION WIDTH 21.7 % (11.5-14.5); WHITE BLOOD COUNT 11.9 X10'3 (4.5-11.0)
[2018-01-01 15:00] VITALS: BP 104/55
[2018-01-01 19:00] VITALS: BP 101/62
[2018-01-01] MEDS: lactobacillus rhamnosus 10,000 MMU CELLS/CAPSULE PO SCH (19:28)
[2018-01-01 23:00] VITALS: BP 102/53
[2018-01-02] VITALS (16 sets, daily range): BP systolic 92–119; BP diastolic 47–76
[2018-01-02] MEDS: midodrine tablet 2.5 MG TABLET PO SCH ×3 (00:18→16:21)
[2018-01-02] MEDS: gabapentin 300mg capsule PO SCH ×4 (02:07→20:45)
[2018-01-02] MEDS: oxyCODONE IR 5mg (immed. release) tablet PO PRN ×3 (05:53→18:47)
[2018-01-02 06:05] LABS: INR 1.7 INR; PROTHROMBIN TIME 17.6 SECONDS (9.0-12.0)
[2018-01-02 06:10] LABS: ALANINE AMINOTRANSFERASE 221 U/L (12-78); ALBUMIN 2.8 G/DL (3.4-5.0); ALBUMIN/GLOBULIN RATIO 0.9 (1.1-1.5); ALKALINE PHOSPHATASE 92 IU/L (46-116); ANION GAP 17 (8-16); ASPARTATE AMINO TRANSFERASE 265 U/L (10-37); BILIRUBIN,TOTAL 1.4 MG/DL (0.1-1.0); BLOOD UREA NITROGEN 70 MG/DL (7-18); BUN/CREATININE RATIO 55.1 (6.6-38.0); CALCIUM 7.9 MG/DL (8.5-10.1); CHLORIDE 100 MMOL/L (99-107); CREATININE 1.27 MG/DL (0.40-0.90); GLUCOSE 127 MG/DL (70-104); SODIUM 134 MMOL/L (135-145); TOTAL PROTEIN 5.9 G/DL (6.4-8.2); eGFR 43 ML/MIN
[2018-01-02 06:14] LABS: MEAN CORPUSCULAR HEMOGLOBIN 32.9 PG (27.0-31.0); MEAN CORPUSCULAR HGB CONC 34.4 % (33.0-36.5); MEAN CORPUSCULAR VOLUME 95.7 FL (78-98); MEAN PLATELET VOLUME 8.3 FL (7.4-10.4); PLATELET COUNT 72 X10'3 (140-440); RED BLOOD COUNT 2.18 X10'6 (4.20-5.60); RED CELL DISTRIBUTION WIDTH 21.9 % (11.5-14.5); WHITE BLOOD COUNT 13.8 X10'3 (4.5-11.0)
[2018-01-02 06:27] LABS: HEMATOCRIT 20.9 % (35.0-45.0); HEMOGLOBIN 7.2 g/dl (12.0-16.0)
[2018-01-02] MEDS: lactobacillus rhamnosus 10,000 MMU CELLS/CAPSULE PO SCH ×2 (08:13→20:45)
[2018-01-02] MEDS: albumin (human) 25% 100 ML IV solution IV SCH (08:13)
[2018-01-02] MEDS: pantoprazole 40mg Tablet.DR PO SCH ×2 (08:13→20:45)
[2018-01-02] MEDS: methylPREDNISolone sod succ/PF 40mg inj. IV SCH (08:13)
[2018-01-02 09:08] LABS: TOTAL CELLS COUNTED 100
[2018-01-02 09:09] LABS: ANISOCYTOSIS 3+; BURR CELLS 1+; PLATELET ESTIMATE DECREASED; POLYCHROMASIA 1+; TARGET CELLS 1+
[2018-01-02 09:10] LABS: HYPOCHROMASIA 1+
[2018-01-02] MEDS: CefTRIAXone 2gm/D5W 50ml 50 ML IV SCH (09:53)
[2018-01-02] MEDS ORDERED: lactulose 20gm/30ml cup PO ONE (10:55)
[2018-01-02 13:44] LABS: BASOPHILS % (AUTO) 0.2 % (0-1); EOSINOPHILS % (AUTO) 0 % (0-6); HEMATOCRIT 23.3 % (35.0-45.0); HEMOGLOBIN 7.8 g/dl (12.0-16.0); LYMPHOCYTES # (AUTO) 0.3 X10'3 (1.1-4.8); LYMPHOCYTES % (AUTO) 2.2 % (21-51); MEAN CORPUSCULAR HEMOGLOBIN 32.3 PG (27.0-31.0); MEAN CORPUSCULAR HGB CONC 33.2 % (33.0-36.5); MEAN CORPUSCULAR VOLUME 97.1 FL (78-98); MEAN PLATELET VOLUME 7.9 FL (7.4-10.4); MONOCYTES # (AUTO) 0.3 X10'3 (0-0.9); NEUTROPHILS # (AUTO) 12.6 X10'3 (1.8-7.7); NEUTROPHILS % (AUTO) 95.6 % (42-75); PLATELET COUNT 75 X10'3 (140-440); RED CELL DISTRIBUTION WIDTH 22.2 % (11.5-14.5); WHITE BLOOD COUNT 13.2 X10'3 (4.5-11.0)
[2018-01-02 20:49] LABS: BASOPHILS # (AUTO) 0.2 X10'3 (0-0.2); BASOPHILS % (AUTO) 1.8 % (0-1); EOSINOPHILS % (AUTO) 0 % (0-6); HEMATOCRIT 26.2 % (35.0-45.0); HEMOGLOBIN 8.8 g/dl (12.0-16.0); LYMPHOCYTES # (AUTO) 0.3 X10'3 (1.1-4.8); LYMPHOCYTES % (AUTO) 2.6 % (21-51); MEAN CORPUSCULAR HEMOGLOBIN 32.7 PG (27.0-31.0); MEAN CORPUSCULAR HGB CONC 33.6 % (33.0-36.5); MEAN CORPUSCULAR VOLUME 97.2 FL (78-98); MEAN PLATELET VOLUME 8.2 FL (7.4-10.4); MONOCYTES # (AUTO) 0.7 X10'3 (0-0.9); MONOCYTES % (AUTO) 6.8 % (2-12); NEUTROPHILS # (AUTO) 9.8 X10'3 (1.8-7.7); NEUTROPHILS % (AUTO) 88.8 % (42-75); PLATELET COUNT 63 X10'3 (140-440); RED CELL DISTRIBUTION WIDTH 19.8 % (11.5-14.5)
[2018-01-03] VITALS (8 sets, daily range): BP systolic 96–139; BP diastolic 47–74
[2018-01-03] MEDS: midodrine tablet 2.5 MG TABLET PO SCH ×3 (00:38→16:12)
[2018-01-03] MEDS: oxyCODONE IR 5mg (immed. release) tablet PO PRN ×4 (00:38→19:59)
[2018-01-03] MEDS: gabapentin 300mg capsule PO SCH ×4 (02:15→19:59)
[2018-01-03 06:21] LABS: BASOPHILS # (AUTO) 0.1 X10'3 (0-0.2); BASOPHILS % (AUTO) 0.5 % (0-1); EOSINOPHILS # (AUTO) 0.1 X10'3 (0-0.9); EOSINOPHILS % (AUTO) 0.5 % (0-6); HEMATOCRIT 27.2 % (35.0-45.0); HEMOGLOBIN 9.1 g/dl (12.0-16.0); LYMPHOCYTES # (AUTO) 0.7 X10'3 (1.1-4.8); LYMPHOCYTES % (AUTO) 5.1 % (21-51); MEAN CORPUSCULAR HEMOGLOBIN 32.6 PG (27.0-31.0); MEAN CORPUSCULAR HGB CONC 33.6 % (33.0-36.5); MEAN PLATELET VOLUME 8.7 FL (7.4-10.4); MONOCYTES # (AUTO) 0.9 X10'3 (0-0.9); MONOCYTES % (AUTO) 6.5 % (2-12); NEUTROPHILS # (AUTO) 11.8 X10'3 (1.8-7.7); NEUTROPHILS % (AUTO) 87.4 % (42-75); PLATELET COUNT 78 X10'3 (140-440); RED BLOOD COUNT 2.81 X10'6 (4.20-5.60); RED CELL DISTRIBUTION WIDTH 21.2 % (11.5-14.5); WHITE BLOOD COUNT 13.5 X10'3 (4.5-11.0)
[2018-01-03 06:23] LABS: INR 1.4 INR; PROTHROMBIN TIME 14.6 SECONDS (9.0-12.0)
[2018-01-03 06:27] LABS: ALANINE AMINOTRANSFERASE 164 U/L (12-78); ALBUMIN/GLOBULIN RATIO 0.9 (1.1-1.5); ALKALINE PHOSPHATASE 106 IU/L (46-116); ANION GAP 13 (8-16); ASPARTATE AMINO TRANSFERASE 135 U/L (10-37); BLOOD UREA NITROGEN 52 MG/DL (7-18); BUN/CREATININE RATIO 53.1 (6.6-38.0); CALCIUM 8.3 MG/DL (8.5-10.1); CHLORIDE 102 MMOL/L (99-107); CREATININE 0.98 MG/DL (0.40-0.90); GLUCOSE 106 MG/DL (70-104); POTASSIUM 4.4 MMOL/L (3.5-5.1); SODIUM 133 MMOL/L (135-145); TOTAL CARBON DIOXIDE 18.2 MMOL/L (24-32); TOTAL PROTEIN 6.3 G/DL (6.4-8.2); eGFR 58 ML/MIN
[2018-01-03 07:07] LABS: ANISOCYTOSIS 3+; LARGE PLATELETS FEW; PLATELET ESTIMATE DECREASED
[2018-01-03 07:08] LABS: MICROCYTOSIS 1+; POLYCHROMASIA 1+
[2018-01-03] MEDS: albumin (human) 25% 100 ML IV solution IV SCH (07:13)
[2018-01-03] MEDS: pantoprazole 40mg Tablet.DR PO SCH ×2 (07:14→20:00)
[2018-01-03] MEDS: lactobacillus rhamnosus 10,000 MMU CELLS/CAPSULE PO SCH ×2 (07:14→19:59)
[2018-01-03] MEDS: methylPREDNISolone sod succ/PF 40mg inj. IV SCH (07:14)
[2018-01-03] MEDS: cefTAZidime inj. 1 GM in normal saline 100ml IV soln 100 ML IV SCH (07:15)
[2018-01-03] MEDS ORDERED: LIDOcaine 0.5% (5mg/ml) 50ml vial ONE (09:17)
[2018-01-03 11:39] LABS: BASOPHILS % (AUTO) 0.1 % (0-1); EOSINOPHILS # (AUTO) 0.1 X10'3 (0-0.9); EOSINOPHILS % (AUTO) 0.6 % (0-6); HEMATOCRIT 25.8 % (35.0-45.0); HEMOGLOBIN 8.6 g/dl (12.0-16.0); LYMPHOCYTES # (AUTO) 0.3 X10'3 (1.1-4.8); LYMPHOCYTES % (AUTO) 2.4 % (21-51); MEAN CORPUSCULAR HEMOGLOBIN 32.4 PG (27.0-31.0); MEAN CORPUSCULAR HGB CONC 33.1 % (33.0-36.5); MEAN CORPUSCULAR VOLUME 97.9 FL (78-98); MEAN PLATELET VOLUME 7.8 FL (7.4-10.4); MONOCYTES # (AUTO) 0.5 X10'3 (0-0.9); MONOCYTES % (AUTO) 4.3 % (2-12); NEUTROPHILS % (AUTO) 92.6 % (42-75); PLATELET COUNT 56 X10'3 (140-440); RED BLOOD COUNT 2.64 X10'6 (4.20-5.60); RED CELL DISTRIBUTION WIDTH 21.1 % (11.5-14.5); WHITE BLOOD COUNT 10.8 X10'3 (4.5-11.0)
[2018-01-04] MEDS: midodrine tablet 2.5 MG TABLET PO SCH ×3 (00:15→14:57)
[2018-01-04] MEDS: oxyCODONE IR 5mg (immed. release) tablet PO PRN ×4 (02:14→19:29)
[2018-01-04] MEDS: gabapentin 300mg capsule PO SCH ×4 (02:14→19:27)
[2018-01-04 03:00] VITALS: BP 124/69
[2018-01-04 06:00] VITALS: BP 109/62
[2018-01-04] MEDS: cefTAZidime inj. 1 GM in normal saline 100ml IV soln 100 ML IV SCH (07:31)
[2018-01-04] MEDS: methylPREDNISolone sod succ/PF 40mg inj. IV SCH (07:32)
[2018-01-04] MEDS: albumin (human) 25% 100 ML IV solution IV SCH (07:32)
[2018-01-04] MEDS: pantoprazole 40mg Tablet.DR PO SCH ×2 (07:33→19:26)
[2018-01-04] MEDS: lactobacillus rhamnosus 10,000 MMU CELLS/CAPSULE PO SCH ×2 (07:33→19:27)
[2018-01-04 07:41] LABS: BASOPHILS # (AUTO) 0.4 X10'3 (0-0.2); BASOPHILS % (AUTO) 2.7 % (0-1); EOSINOPHILS # (AUTO) 0.3 X10'3 (0-0.9); EOSINOPHILS % (AUTO) 2.1 % (0-6); HEMATOCRIT 28.8 % (35.0-45.0); HEMOGLOBIN 9.6 g/dl (12.0-16.0); LYMPHOCYTES # (AUTO) 0.8 X10'3 (1.1-4.8); MEAN CORPUSCULAR HEMOGLOBIN 32.5 PG (27.0-31.0); MEAN CORPUSCULAR HGB CONC 33.4 % (33.0-36.5); MEAN CORPUSCULAR VOLUME 97.3 FL (78-98); MEAN PLATELET VOLUME 7.8 FL (7.4-10.4); MONOCYTES % (AUTO) 8.1 % (2-12); NEUTROPHILS # (AUTO) 10.4 X10'3 (1.8-7.7); NEUTROPHILS % (AUTO) 81.1 % (42-75); PLATELET COUNT 79 X10'3 (140-440); RED BLOOD COUNT 2.96 X10'6 (4.20-5.60); RED CELL DISTRIBUTION WIDTH 21.8 % (11.5-14.5); WHITE BLOOD COUNT 12.9 X10'3 (4.5-11.0)
[2018-01-04 07:48] LABS: INR 1.3 INR; PROTHROMBIN TIME 13.6 SECONDS (9.0-12.0)
[2018-01-04 07:59] LABS: ANION GAP 12 (8-16); BILIRUBIN,TOTAL 1.5 MG/DL (0.1-1.0); BLOOD UREA NITROGEN 38 MG/DL (7-18); BUN/CREATININE RATIO 42.2 (6.6-38.0); CALCIUM 8.6 MG/DL (8.5-10.1); CHLORIDE 102 MMOL/L (99-107); GLUCOSE 105 MG/DL (70-104); POTASSIUM 4.1 MMOL/L (3.5-5.1); SODIUM 134 MMOL/L (135-145); TOTAL CARBON DIOXIDE 20.3 MMOL/L (24-32); TOTAL PROTEIN 6.2 G/DL (6.4-8.2); eGFR 63 ML/MIN
[2018-01-04 08:00] LABS: ALANINE AMINOTRANSFERASE 115 U/L (12-78); ALBUMIN/GLOBULIN RATIO 0.9 (1.1-1.5); ALKALINE PHOSPHATASE 107 IU/L (46-116); ASPARTATE AMINO TRANSFERASE 61 U/L (10-37)
[2018-01-04 08:07] LABS: PLATELET ESTIMATE DECREASED
[2018-01-04 08:08] LABS: ANISOCYTOSIS 3+
[2018-01-04 11:00] VITALS: BP 113/53
[2018-01-04 12:14] LABS: BASOPHILS # (AUTO) 0.3 X10'3 (0-0.2); EOSINOPHILS % (AUTO) 0.3 % (0-6); HEMATOCRIT 28.5 % (35.0-45.0); HEMOGLOBIN 9.5 g/dl (12.0-16.0); LYMPHOCYTES # (AUTO) 0.2 X10'3 (1.1-4.8); LYMPHOCYTES % (AUTO) 2.1 % (21-51); MEAN CORPUSCULAR HEMOGLOBIN 32.5 PG (27.0-31.0); MEAN CORPUSCULAR HGB CONC 33.3 % (33.0-36.5); MEAN CORPUSCULAR VOLUME 97.5 FL (78-98); MEAN PLATELET VOLUME 7.9 FL (7.4-10.4); MONOCYTES # (AUTO) 0.4 X10'3 (0-0.9); MONOCYTES % (AUTO) 3.4 % (2-12); NEUTROPHILS # (AUTO) 10.4 X10'3 (1.8-7.7); NEUTROPHILS % (AUTO) 91.9 % (42-75); RED BLOOD COUNT 2.92 X10'6 (4.20-5.60); RED CELL DISTRIBUTION WIDTH 22.2 % (11.5-14.5); WHITE BLOOD COUNT 11.3 X10'3 (4.5-11.0)
[2018-01-04 12:40] LABS: BASOPHILS % (AUTO) 1.9 % (0-1); PLATELET COUNT 82 X10'3 (140-440)
[2018-01-04] MEDS ORDERED: MIDO5TAB PO (12:52)
[2018-01-04 13:37] LABS: ANISOCYTOSIS 3+; PLATELET ESTIMATE DECREASED
[2018-01-04 15:00] VITALS: BP 117/61
== END 2018-01-04 20:00 | disposition short-term general hospital (02) | DRG 432 ==
LOC: ER 16:05 → ED HOLD 18:39 → PCU 3S 20:49
PROVIDERS: ADMIT Internal Medicine Critical Care Medicine; ATTEND Internal Medicine Critical Care Medicine
PROC: 30233N1 Transfusion of Nonautologous Red Blood Cells into Peripheral Vein, Percutaneous Approach (ICD-10-PCS; 2017-12-30)
PROC: 0DJ08ZZ Inspection of Upper Intestinal Tract, Via Natural or Artificial Opening Endoscopic (ICD-10-PCS; 2017-12-31)
PROC: 30233N1 Transfusion of Nonautologous Red Blood Cells into Peripheral Vein, Percutaneous Approach (ICD-10-PCS; 2018-01-02)
PROC: 0W9G3ZZ Drainage of Peritoneal Cavity, Percutaneous Approach (ICD-10-PCS; principal; 2018-01-03)
DX: K70.31 Alcoholic cirrhosis of liver with ascites (principal); K25.0 Acute gastric ulcer with hemorrhage; J18.9 Pneumonia, unspecified organism; R57.1 Hypovolemic shock; K76.7 Hepatorenal syndrome; N17.9 Acute kidney failure, unspecified; N18.4 Chronic kidney disease, stage 4 (severe); K76.6 Portal hypertension; I24.8 Other forms of acute ischemic heart disease; E72.20 Disorder of urea cycle metabolism, unspecified; R64 Cachexia; I85.00 Esophageal varices without bleeding; D50.0 Iron deficiency anemia secondary to blood loss (chronic); R55 Syncope and collapse; D69.6 Thrombocytopenia, unspecified; G89.29 Other chronic pain; I12.9 Hypertensive chronic kidney disease with stage 1 through stage 4 chronic kidney disease, or unspecified chronic kidney disease; K31.89 Other diseases of stomach and duodenum; K70.40 Alcoholic hepatic failure without coma; M54.9 Dorsalgia, unspecified; R00.0 Tachycardia, unspecified; Z88.8 Allergy status to other drugs, medicaments and biological substances; Z79.899 Other long term (current) drug therapy; Z68.21 Body mass index [BMI] 21.0-21.9, adult
CPT/HCPCS: 36415; 49083; 71045; 76700; 80053; 80074; 81001; 81025; 82140; 82150; 82800; 82945; 82948; 83605; 83615; 83690; 83880; 84145; 84157; 84478; 84484; 85025; 85610; 86677; 86885; 86900; 86901; 86920; 87040; 87070; 87075; 88108; 88305; 89051; 93005; 93975; 96360; 97110; 97116; 97161; 99152; 99291; 99292; A4620; A6253; C9113; J0696; J0713; J2001; J2250; J2543; J2920; J3010; J7030; P9016; P9047

== ENCOUNTER 2018-02-07 08:16 | Day surgery (SDC) | payer MEDICARE, MEDICAID ==
[2018-02-07] VITALS (7 sets, daily range): BP systolic 100–125; BP diastolic 54–82
[~2018-02-07] VITALS: Ht 152.4 cm; Wt 50.8 kg
[~2018-02-07 08:16] MED LIST changes: +LIDOcaine 1% 30ml preserv. free vial SQ ONE; +LIDOcaine 1% 30ml preserv. free vial SQ STA; +MIDO5TAB PO
[2018-02-07] MEDS ORDERED: CYCL-1 PO (08:36)
[2018-02-07] MEDS ORDERED: normal saline 1000ml 1,000 ML IV PRN (09:00)
[2018-02-07] MEDS ORDERED: albumin (human) 25% 100 ML IV solution IV PRN (09:00)
[2018-02-09] MEDS ORDERED: FLUC100T PO (14:57)
[2018-02-09] MEDS ORDERED: CIPR-259 PO (14:57)
== END 2018-02-07 09:30 | disposition home or self-care (01) ==
LOC: SSTAY O 08:16
PROVIDERS: ATTEND Radiology Diagnostic Radiology
DX: R18.8 Other ascites (principal); K76.9 Liver disease, unspecified; E87.6 Hypokalemia; G89.29 Other chronic pain; M54.5 Low back pain; Z88.6 Allergy status to analgesic agent; Z88.8 Allergy status to other drugs, medicaments and biological substances; Z79.899 Other long term (current) drug therapy; Z98.890 Other specified postprocedural states
CPT/HCPCS: 49083; J3490; J7030